=== PATIENT | female | born 1990 | race Caucasian/White ===

== ENCOUNTER → 2017-08-16 | Outpatient (REF) ==
[~2017-08-16] MED LIST: CIPRO 500MG TA500 MG PO; FEOSOL65 MG PO; LEVOXYL0.112 MG PO; PREDNISONE20 MG PO; ZOFRAN 4MG T4 MG/TAB PO
== END ==
LOC: ZLAB.WCH 18:13
DX: Z01.89 Encounter for other specified special examinations (principal)

== ENCOUNTER → 2017-10-20 | Outpatient (REF) | LOC: ZLAB.WCH 17:51 | DX: Z01.89 Encounter for other specified special examinations (principal) ==

== ENCOUNTER → 2018-05-06 | Outpatient (REF) | LOC: ZLAB.WCH 15:56 | DX: Z01.89 Encounter for other specified special examinations (principal) ==

== ENCOUNTER → 2018-07-07 | Outpatient (REF) | LOC: ZLAB.WCH 17:49 | DX: Z01.89 Encounter for other specified special examinations (principal) ==